=== PATIENT | female | born 1950 | race Caucasian/White ===

== ENCOUNTER 2018-12-17 07:03 | Emergency (ER) | payer MEDICARE ==
[2018-12-17 07:15] VITALS: BP 128/72
--- NOTE | 2018-12-17 07:29 | UC ---
Lower Extremity/Ankle HPI - HPI Summary HPI Summary: Patient Chief Complaint: Left lower leg pain and swelling Course (aggravating, relieving, current condition, severity): 68-year-old female reports 4 days of increasing pain in the left lower leg and swelling of that leg. She locates the pain on the lateral aspect of the calf muscle, not directly over the Achilles tendon. The pain is 7/10 and worse with walking. Her vital signs are stable. Her blood pressure slightly elevated 128/72. She is afebrile and her vital signs are otherwise within normal limits. The patient was seen here one week ago and started on Zithromax. Subsequent to that , she developed diarrhea and was diagnosed with Clostridium difficile and started on metronidazole and Cipro. Decades ago she was diagnosed with sarcoid , but has had no problem with that since that time. She does have GERD. She has no complaint of shortness of breath or chest pain consistent with a pulmonary embolus. MD note: vital signs stable. Beyond normal range vital signs reviewed. Nurses Note Reviewed: Visit History Reviewed. Medications & Allergies Reviewed. - History of Current Complaint Stated Complaint: LEG PAIN Time Seen by Provider: 12/17/18 07:11 Pain Intensity: 7 - Allergies/Home Medications Allergies/Adverse Reactions: Allergies Allergy/AdvReac Type Severity Reaction Status Date / Time No Known Allergies Allergy Verified 12/17/18 07:16 Home Medications: Home Medications raNITIdine HCl [Zantac 75] 150 mg PO BID 12/17/18 [History Confirmed 12/17/18] PMH/Surg Hx/FS Hx/Imm Hx - Additional Past Medical History Additional PMH: PMH reviewed. Family History: -Denies hypertension, heart disease, stroke, diabetes, cancer. SOCIAL HISTORY: Employment: Part-time job for many years [employer]. No recent history of sitting for a long time. Family Environment: Lives with her . Habits: Nonsmoker Previously Healthy: Yes - Surgical History Surgical History: Yes Surgery Procedure, Year, and Place: ear surgery, ovaries removed, tubal ligation , granuloma removed from face - Family History Known Family History: Positive: None, Non-Contributory - Social History Occupation: Employed Part-time Alcohol Use: None Substance Use Type: None Smoking Status (MU): Never Smoked Tobacco Review of Systems All Other Systems Reviewed And Are Negative: Yes Respiratory: Positive: Cough - residual. Negative: Shortness Of Breath Cardiovascular: Positive: Negative Gastrointestinal: Positive: Negative Genitourinary: Positive: Negative Musculoskeletal: Positive: Myalgia - Left lower leg, also swollen Is Patient Immunocompromised?: No - Comments Additional Review of Systems Comments: A 12 point review of systems was completed and was significantly positive for: left lower leg pain and swelling . The remainder of the review was negative except as stated above in the ROS or HPI. Physical Exam - Summary Physical Exam Summary: Appearance: The patient is well-appearing, is in no pain or distress, and is well-nourished. Eyes: Conjunctiva are clear. Pupils are equal and reactive to light and accommodation. Extra ocular muscle movement is intact. ENT: The hearing is grossly normal, the pharynx is normal, and the TMs are normal. There is no muffled or hoarse voice. No stridor. Neck: The neck is supple and there is no lymphadenopathy. Respiratory: The chest is nontender to palpation and without crepitus. The lungs are clear, there are normal breath sounds, and there is no respiratory distress. No wheezes, rales or rhonchi. Cardiovascular: Heart sounds reveal a regular rate and rhythm. There are no clicks, rubs or murmurs. There are no carotid bruits or thrills. Circulation is grossly intact. Abdomen: The abdomen is soft and nontender. There is no organomegaly. Bowel sounds are present and within normal limits. No point tenderness at McBurneys point. Musculoskeletal: Strength is intact. The patient moves all extremities. Patient ambulates but with increasing discomfort in the left lower leg. Measurement of the right and left lower leg shows a discrepancy of 1 inch. Approximately 5.25 inches on the right and 6.25 inches on the left. Palpation of the left lower leg over the calf shows discomfort with palpation over the lateral posterior calf on the left. Negative Homans sign. There is no significant tenderness of the Achilles just proximal to the calcaneus. Neurological: The patient is alert. Motor and sensory are examination grossly intact. Speech is normal. Psychological: The patient displays age appropriate behavior Skin: Negative for rashes. Triage Information Reviewed: Yes Vital Signs: Initial Vital Signs Temp 98.8 F 12/17/18 07:07 Pulse 83 12/17/18 07:07 Resp 20 12/17/18 07:07 BP 128/72 12/17/18 07:07 Pulse Ox 100 12/17/18 07:07 Lower Extremity Course/Dx - Course Course Of Treatment: 68-year-old female reports 4 days of increasing pain in the left lower leg and swelling of that leg. She locates the pain on the lateral aspect of the calf muscle, not directly over the Achilles tendon. The pain is 7/10 and worse with walking. Her vital signs are stable. Her blood pressure slightly elevated 128/72. She is afebrile and her vital signs are otherwise within normal limits. The patient was seen here one week ago and started on Zithromax. Subsequent to that, she developed diarrhea and was diagnosed with Clostridium difficile and started on metronidazole and Cipro. Decades ago she was diagnosed with sarcoid, but has had no problem with that since that time. She does have GERD. She has no complaint of shortness of breath or chest pain consistent with a pulmonary embolus. Patient ambulates but with increasing discomfort in the left lower leg. Measurement of the right and left lower leg shows a discrepancy of 1 inch. Approximately 5.25 inches on the right and 6.25 inches on the left. Palpation of the left lower leg over the calf shows discomfort with palpation over the lateral posterior calf on the left. Negative Homans sign. There is no significant tenderness of the Achilles just proximal to the calcaneus. I discussed with the patient that this could be a muscle discomfort. [facility], but because of the swelling and pain in the leg. I could not rule out a blood clot in the vein of that leg. The patient was encouraged to follow up in the emergency department. She voiced understanding and said she would do that. Her vital signs were stable when she left the [facility]. Medications reviewed. Hypertension, status reviewed. Slight elevation of the systolic pressure. Patient is urgent emergent. This may be related to her pain. My diagnosis is left lower extremity pain: Myalgia secondary to DVT, medication reaction, or simple muscle strain. - Differential Dx/Diagnosis Differential Diagnosis/HQI/PQRI: DVT, Sprain, Strain, Other - myalgia from Cipro Provider Diagnosis: Leg pain Discharge - Sign-Out/Discharge Documenting (check all that apply): Patient Departure All imaging exams completed and their final reports reviewed: No Studies - Discharge Plan Condition: Stable Disposition: HOME Patient Education Materials: Deep Vein Thrombosis (ED), Musculoskeletal Pain ( ED) Referrals: Shivani Orlando MD [Primary Care Provider] - Additional Instructions: WE DISCUSSED: PLEASE SEEK CARE AT THE EMERGENCY DEPARTMENT. FOLLOW UP WITH YOUR PRIMARY CARE PHYSICIAN IF CONDITION CONTINUES BEYOND 3 DAYS WITHOUT IMPROVEMENT. We are open from 7 a.m. to 10 p.m. Call us with any questions or concerns. YOUR DIAGNOSIS IS: LEFT LOWER LEG PAIN AND SWELLING; POSSIBLE REACTION TO CIPRO OR BLOOD CLOT OR MUSCLE STRAIN YOUR PRESCRIPTION RECOMMENDATION IS: No medications; Go to ED for further evaluation and treatment as needed since we don't have ultrasound today. OTHER INSTRUCTIONS: Hypertension Discharge Instructions: Your blood pressure reading today was 128/72, indicating HYPERTENSION. Follow- up with your primary care provider within 4 weeks for blood pressure check and appropriate recommendations and treatment, as needed. - Billing Disposition and Condition Condition: STABLE Disposition: Home
== END 2018-12-17 08:03 | disposition home or self-care (01) ==
LOC: UCEAST 07:03
DX: M79.662 Pain in left lower leg (principal); M79.89 Other specified soft tissue disorders; R05 Cough
CPT/HCPCS: 99212; G0463

== ENCOUNTER 2018-12-17 08:37 | Emergency (ER) | payer MEDICARE ==
--- NOTE | 2018-12-17 08:56 | ED ---
Lower Extremity - HPI Summary HPI Summary: This patient is a 68 year old F presenting from [facility] to ED with a chief complaint of L calf swelling with pain since 3 days ago. She was sent to the ED for an US to r/o blood clot. The patient rates the pain 6/10 in severity. Symptoms aggravated by nothing. Symptoms alleviated by nothing. Patient is a non -smoker and has no hx of DVT. The patient is not on any blood thinners. - History of Current Complaint Chief Complaint: EDExtremityLower Stated Complaint: POSSIBLE BLOOD CLOT IN LEG PER PT Time Seen by Provider: 12/17/18 08:44 Hx Obtained From: Patient Onset of Pain: Days - 3 days ago Onset/Duration: Still Present - 3 days ago Severity Initially: Moderate Severity Currently: Moderate Pain Intensity: 6 Pain Scale Used: 0-10 Numeric Timing: Lasting Days - 3 days ago Location: Is Discrete @ - L calf Associated Signs And Symptoms: Positive: Swelling Aggravating Factor(s): Nothing Alleviating Factor(s): Nothing Able to Bear Weight: Yes - Allergies/Home Medications Allergies/Adverse Reactions: Allergies Allergy/AdvReac Type Severity Reaction Status Date / Time No Known Allergies Allergy Verified 12/17/18 08:43 PMH/Surg Hx/FS Hx/Imm Hx Endocrine/Hematology History: Denies: Hx Diabetes, Hx Thyroid Disease Cardiovascular History: Denies: Hx Deep Vein Thrombosis, Hx Hypertension Respiratory History: Denies: Hx Asthma, Hx Chronic Obstructive Pulmonary Disease (COPD) GI History: Denies: Hx Ulcer - Cancer History Hx Chemotherapy: No Hx Radiation Therapy: No - Surgical History Surgery Procedure, Year, and Place: ear surgery, ovaries removed, tubal ligation , granuloma removed from face Infectious Disease History: No Infectious Disease History: Denies: Hx Hepatitis, Traveled Outside the [place] in Last 30 Days - Family History Known Family History: Positive: Other Family History: denies breast CA - Social History Alcohol Use: None Substance Use Type: Reports: None Hx Tobacco Use: No Smoking Status (MU): Never Smoked Tobacco Review of Systems Negative: Fever Positive: Edema - L calf swelling with pain All Other Systems Reviewed And Are Negative: Yes Physical Exam - Summary Physical Exam Summary: VITAL SIGNS: Reviewed. GENERAL: Patient is a well-developed and nourished FEMALE who is lying comfortable in the stretcher. Patient is not in any acute respiratory distress. HEAD AND FACE: No signs of trauma. No ecchymosis, hematomas or skull depressions. No sinus tenderness. EYES: PERRLA, EOMI x 2, No injected conjunctiva, no nystagmus. EARS: Hearing grossly intact. Ear canals and tympanic membranes are within normal limits. MOUTH: Oropharynx within normal limits. NECK: Supple, trachea is midline, no adenopathy, no JVD, no carotid bruit, no c- spine tenderness, neck with full ROM. CHEST: Symmetric, no tenderness at palpation LUNGS: Clear to auscultation bilaterally. No wheezing or crackles. CVS: Regular rate and rhythm, S1 and S2 present, no murmurs or gallops appreciated. ABDOMEN: Soft, non-tender. No signs of distention. No rebound no guarding, and no masses palpated. Bowel sounds are normal. EXTREMITIES: FROM in all major joints, no edema, no cyanosis or clubbing. No Vera's sign. Good pedal pulses. NEURO: Alert and oriented x 3. No acute neurological deficits. Speech is normal and follows commands. SKIN: Dry and warm Triage Information Reviewed: Yes Vital Signs On Initial Exam: Initial Vitals Temp Pulse Resp BP Pulse Ox 98.8 F 76 14 142/82 100 12/17/18 08:40 12/17/18 08:40 12/17/18 08:40 12/17/18 08:40 12/17/18 08:40 Vital Signs Reviewed: Yes Diagnostics - Vital Signs Vital Signs Temp Pulse Resp BP Pulse Ox 12/17/18 08:40 98.8 F 76 14 142/82 100 - Laboratory Result Diagrams: 12/17/18 08:57 12/17/18 08:57 Lab Statement: Any lab studies that have been ordered have been reviewed, and results considered in the medical decision making process. - Ultrasound No standard instances Ultrasound Interpretation Completed By: Radiologist Summary of Ultrasound Findings: VL LE US reveals acute appearing occlusive thrombosis of the paired peroneal veins of the LEFT calf. Negative for more proximal LEFT lower extremity DVT. Dr. Cobb has reviewed this radiology report. Re-Evaluation - Re-Evaluation First Eval Re-Evaluation Time: 11:36 Comment: Discussed results and plan for discharge. Patient understands and agrees with this plan. Lower Extremity Course/Dx - Course Assessment/Plan: Patient is a 68-year-old female who presents to the emergency department with chief complaint of having back pain. Patient went to the urgent care and they transferred her to the emergency department to rule out DVT. Test results without any significant abnormality except for CRP of 44.67. Urinalysis is contaminated. Therefore we will send urine for cultures. Lower extremity ultrasound impression: Acute-appearing occlusive thrombosis of the peroneal veins at the left calf. In the ED course the patient was placed in Eliquis and and she will be given a prescription for Eliquis. Patient was given for instructions of blood thinners the benefits and risk. The patient understands and agrees. Patient will follow up with the primary care physician on Wednesday. I discussed all the findings and test results with the patient. Patient was instructed to return to the emergency room immediately if any of the symptoms return or worsens. Plan of care was discussed with the patient and understands and agrees. All questions were answered at patient satisfaction. There were no further complaints or concerns. Lung exam before discharge: CTA B/ L. Good air exchange. No wheezing or crackles heard. CVS: S1 and S2 present. No murmurs appreciated. Patient is alert and oriented x 3. Patient is hemodynamically stable. Patient will be discharged home with follow up PCP in the next 2-3 days - Diagnoses Provider Diagnoses: DVT (deep venous thrombosis) Discharge - Sign-Out/Discharge Documenting (check all that apply): Patient Departure - discharge Patient Received Moderate/Deep Sedation with Procedure: No - Discharge Plan Condition: Stable Disposition: HOME Prescriptions: Apixaban* [Eliquis*] 10 mg PO BID #14 tab Patient Education Materials: Deep Vein Thrombosis (ED) Referrals: Shivani Orlando MD [Primary Care Provider] - 3 Days Additional Instructions: RETURN TO THE ED FOR ANY WORSENING OR NEW SYMPTOMS. - Billing Disposition and Condition Condition: STABLE Disposition: Home - Attestation Statements Document Initiated by Scribe: Yes Documenting Scribe: Siddharth Fisher Provider For Whom Amita is Documenting (Include Credential): Thai Cobb MD Scribe Attestation: Siddharth Marlow, scribed for Thai Cobb MD on 12/17/18 at 1846. Scribe Documentation Reviewed: Yes Provider Attestation: The documentation as recorded by the Siddharth parks accurately reflects the service I personally performed and the decisions made by , Thai Cobb MD Status of Scribe Document: Viewed
[2018-12-17 09:04] LABS: ABS Basophils 0.1 10^3/ul (0-0.2); ABS Eosinophils 0.1 10^3/ul (0-0.6); ABS Lymphocytes 1.8 10^3/ul (1.0-4.8); ABS Monocytes 0.9 10^3/ul (0-0.8); ABS Neutrophils 5.7 10^3/ul (1.5-7.7); ABS Nucleated RBC 0 10^3/ul; Eosinophil % 1.4 %; Hematocrit 38 % (35-47); Hemoglobin 12.8 g/dl (12.0-16.0); Lymphocyte % 20.5 %; Mean Corpuscular HGB Conc 34 g/dl (31-36); Mean Corpuscular Hemoglobin 30 pg (27-31); Mean Corpuscular Volume 89 fL (80-97); Mean Platelet Volume 7.1 fL (7.4-10.4); Nucleated Red Blood Cells % 0; Platelet Count 287 10^3/ul (150-450); Red Blood Count 4.27 10^6/ul (4.00-5.40); Red Cell Distribution Width 13 % (10.5-15); White Blood Count 8.6 10^3/ul (3.5-10.8)
[2018-12-17 09:09] LABS: INR 1.17 (0.77-1.02)
--- OUTSIDE RECORDS SUMMARY | 2018-12-17 09:11 | XMS REPORT | Continuity of Care Document ---
:1950 External Reference #:[id number] Author Name Naty Velasquez NP Address [address] [facility] [place] [address] Care Team Providers Name Role Phone Shivani Orlando M.D. Care Team Information Editorial Intern Unavailable Shivani Orlando M.D. Primary Care Physician Unavailable Payers Date Identification Numbers Payment Provider Subscriber Effective: 2017 Policy Number: [id number] [employer] Ppo Jonna Chapin Group Number: [id number] [address] PayID: [id number] [place] [address] Advance Directives Description No Information Available Problems Date Description Provider Status Onset: 01/31/2018 Gastroesophageal reflux disease Shivani Orlando M.D. 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 [employer] Tobacco Use Start: Unknown Nonsmoker ETOH Use Denies alcohol use Tobacco Use Start: Unknown Patient has never smoked Smoking Status Reviewed: 01/31/18 Patient has never smoked Exercise Exercises regularly Type/Frequency Current Allergies, Adverse Reactions, Alerts Description No Known Drug Allergies Medications Medication Date Status Form Strength Qnty SIG Indications Ordering Provider Proair HFA 11/30/ Active Aerosol 108(90Bas 8.500 take 1-2 J45.20 Naty Loomis 2018 e) gm puffs every 4 Ron, mcg/Act hours as FEED INSPECTION SUPERVISOR needed for wheezing and difficulty breathing Amoxicillin 11/30/ Active Capsules 500mg 28cap take two J01.90 Naty Loomis 2018 s capsules by Ron, mouth twice FEED INSPECTION SUPERVISOR daily until gone Omeprazole 10/28/ Active Capsules 20mg 30cap take one by Naty Loomis 2019 DR s mouth twice Ron, daily as FEED INSPECTION SUPERVISOR needed. Ranitidine HCL 01/31/ Active Tablets 150mg 180ta 1 tab by Z00.00 Naty Loomis 2017 bs mouth twice a Ron, day FEED INSPE[employer] [facility] [place] Wort / Active Capsules 150mg Unknown 0000 Multivitamin / Active Tablets 1 by mouth Unknown Adult 0000 every day Bactrim DS 01/18/ Hx Tablets 800-160mg 10tab 1 po bid N39.0 Radha 2017 - s Michael, 01/23/ Afnp-C 2018 Physical 05/21/ Hx evaluate and Prabha Therapy 2010 - treat b leg von 01/18/ pain, itb vs , 2017 sciatica M.D. Proair HFA 03/19/ Hx Aerosol 108(90Bas 1unit 2 puffs every J45.20 Naty Loomis 2010 - ) mcg/ac s 4 hours as Ron, 11/30/ needed FEED INSPECTION SUPERVISOR 2019 Klonopin 02/19/ Hx Tablets 0.5mg 120ta 1-2 po bid Prabha 2010 - bs prn von 03/19/ malik, 2010 M.D. Ibuprofen 02/19/ Hx Tablets 800mg 90tab 1 po q8 hours Prabha 2010 - s tid with food von 01/31/ , 2017 M.D. Bactrim DS 03/07/ Hx Tablets 800-160mg 14tab 1 po bid x 7d 599.0 Adeola 2009 - s Suzie, 02/19/ ENGRAVER [employer]PER[employer]ATE 2010 Physical Hx evaluate and Prabha Therapy 2008 - treat L von 03/07/ Radicular Leg , 2009 Pain M.D. Rozerem 06/03/ Hx Tablets 8mg 30tab 1 po 30 min Prabha 2008 - s before hs von 08/13/ Feroz, 2008 M.D. Ibuprofen 01/28/ Hx Tablets 600mg 90tab take 1 tablet Prabha 2008 - s every 8 hours von 02/19/ as needed Feroz, 2010 with food M.D. Vicodin 01/28/ Hx Tablets 5-500mg 60tab 1-2 po qhs Prabha 2008 - s prn von 08/13/ Feroz, 2008 M.D. Physical 02/12/ Hx Evaluate And Prabha Therapy 2008 - Treat Plantar von 08/07/ Fasciitis malik, 2007 Possible Need M.D. For Ionophoresis Effexor XR 01/20/ Hx Caps ER 75mg 30cap 1 po qd Prabha 2008 - 24HR s 08/07/ Feroz, 2007 M.D. Effexor 01/20/ Hx Tablets 37.5mg 30tab 1 po qd Prabha 2007 - s 08/07/ Feroz, 2007 M.D. Doxycycline 09/20/ Hx Capsules 100mg 20cap 1 PO bid Radha Hyclate 2007 - s Michael, 09/30/ Afnp-C 2007 Zithromax 03/15/ Hx Capsules 250mg 6caps 2 Tabs PO X1, 464.20 Radha 2007 - Then 1 Tab PO [place], 03/20/ qd X 4 More Afnp-C 2006 Days Robitussin ac 03/15/ Hx 4Oz 1-2 TSP PO 464.20 Radha 2007 - Q4H prn Cough [place], 03/22/ Afnp-C 2007 Biaxin 12/06/ Hx Tablets 500mg 20tab 1 PO bid X10 461.9 Madeleine 2007 - s Days Eli, 12/16/ Afnp-C 2007 Augmentin 11/03/ Hx Tablets 500mg 20tab 1 PO bid Michael Owen 2007 - s Elliott, 12/06/ Greta 2007 Omeprazole 05/20/ Hx Capsules 20mg 30cap 1 po qd Prabha 2006 - s pao 11/03/ Feroz, 2007 Greta Detrol LA 05/29/ Hx Capsules 4mg 30cap 1 PO qd Prabha 2005 - s 11/03/ Feroz, 2007 Greta Omeprazole / Hx Capsules 20mg 1 by mouth Unknown 0000 - DR every day 04/23/ 2018 Immunizations CPT Code Status Date Vaccine Lot # [id number] Given 09/06/2018 High-Dose, Influenza Virus Vacccine-fluzone 65 and [id number] older [id number] Given 08/07/2008 DO Not Use Split Influenza Virus Vaccine [id number] Vital Signs Date Vital Result Comment 11/30/2018 2:07pm BP Systolic 132 mmHg BP Diastolic 78 mmHg Heart Rate 76 /min Body Temperature 97.8 F Respiratory Rate 20 /min Weight 174.00 lb 10/28/2018 8:57am BP Systolic 128 mmHg BP Diastolic 78 mmHg Heart Rate 66 /min Body Temperature 98.1 F Height 62 inches 5'2" measured 01/31/18 Weight 172.00 lb BMI (Body Mass Index) 31.5 kg/m2 01/31/2018 2:34pm BP Systolic 118 mmHg BP Diastolic 76 mmHg Heart Rate 78 /min Body Temperature 97.2 F Respiratory Rate 16 /min Height 62 inches 5'2" measured 01/31/18 Weight 170.25 lb BMI (Body Mass Index) 31.1 kg/m2 01/18/2018 2:01pm BP Systolic 110 mmHg BP Diastolic 60 mmHg Heart Rate 72 /min Body Temperature 99.3 F Respiratory Rate 16 /min Height 63 inches 5'3" Weight 169.00 lb BMI (Body Mass Index) 29.9 kg/m2 05/21/2011 10:24am BP Systolic 128 mmHg BP Diastolic 72 mmHg Heart Rate 76 /min Body Temperature 98.8 F Respiratory Rate 14 /min Height 63 inches 5'3" Weight 168.00 lb BMI (Body Mass Index) 29.8 kg/m2 03/19/2011 2:20pm BP Systolic 120 mmHg BP Diastolic 62 mmHg Heart Rate 80 /min Body Temperature 99.4 F Respiratory Rate 20 /min O2 % BldC Oximetry 98 % Height 63 inches 5'3" Weight 169.00 lb BMI (Body Mass Index) 29.9 kg/m2 02/19/2011 11:29am BP Systolic 132 mmHg BP Diastolic 80 mmHg Heart Rate 72 /min Respiratory Rate 14 /min Height 63 inches 5'3" Weight 171.00 lb BMI (Body Mass Index) 30.3 kg/m2 03/07/2010 1:55pm BP Systolic 150 mmHg BP Diastolic 90 mmHg Heart Rate 84 /min Body Temperature 98.7 F Respiratory Rate 16 /min Weight 162.00 lb 08/13/2009 10:22am BP Systolic 120 mmHg BP Diastolic 80 mmHg Heart Rate 68 /min Body Temperature 98.2 F Weight 171.00 lb 01/28/2009 3:44pm BP Systolic 126 mmHg BP Diastolic 76 mmHg Heart Rate 84 /min Body Temperature 98.4 F Height 63 inches 5'3" Weight 164.00 lb BMI (Body Mass Index) 29.0 kg/m2 08/07/2008 2:35pm BP Systolic 122 mmHg BP Diastolic 68 mmHg Heart Rate 76 /min Body Temperature 98.4 F Height 63 inches 5'3" Weight 155.00 lb BMI (Body Mass Index) 27.5 kg/m2 01/21/2008 8:58am BP Systolic 114 mmHg BP Diastolic 60 mmHg Heart Rate 72 /min Height 63 inches 5'3" Weight 159.00 lb BMI (Body Mass Index) 28.2 kg/m2 09/20/2007 4:03pm BP Systolic 120 mmHg BP Diastolic 78 mmHg Body Temperature 97.8 F Height 63 inches 5'3" Weight 153.00 lb BMI (Body Mass Index) 27.1 kg/m2 06/03/2007 9:03am BP Systolic 112 mmHg BP Diastolic 60 mmHg Heart Rate 64 /min Height 63 inches 5'3" Weight 154.00 lb BMI (Body Mass Index) 27.3 kg/m2 03/15/2007 1:04pm BP Systolic 130 mmHg BP Diastolic 74 mmHg Heart Rate 80 /min Body Temperature 84.0 F Respiratory Rate 99.1 /min Height 63 inches 5'3" Weight 168.00 lb BMI (Body Mass Index) 29.8 kg/m2 12/06/2006 4:28pm BP Systolic 128 mmHg BP Diastolic 70 mmHg Body Temperature 98.9 F Height 63 inches 5'3" Weight 170.00 lb BMI (Body Mass Index) 30.1 kg/m2 11/03/2006 12:15pm BP Systolic 112 mmHg BP Diastolic 70 mmHg Heart Rate 68 /min Body Temperature 97.9 F 05/20/2006 5:36pm BP Systolic 112 mmHg BP Diastolic 60 mmHg Body Temperature 98.9 F Weight 165.00 lb 05/29/2005 2:14pm BP Systolic 110 mmHg BP Diastolic 64 mmHg Heart Rate 68 /min Weight 164.00 lb 05/08/2005 2:49pm BP Systolic 130 mmHg BP Diastolic 70 mmHg Heart Rate 62 /min Weight 164.00 lb Results Test Date Facility Test Result H/L Range Note CBC Electronic a 01/18/2018 [facility] ([facility]) WBC 5.9 x10^3/UL 4.0- 10.0 RBC 4.30 x10^6/UL 3.93-6.00 HGB 13.1 g/dL 12.0-17.0 HCT 38 % 35-50 MCV 89.1 fL 80.0-95.0 MCH 30.5 pg 25.6-32.2 MCHC 34.2 g/dL 32.2-36.0 RDW-CV 12.1 % 11.6-14.4 PLT 203 x10^3/UL 163-400 MPV 9.2 fL Low 9.4-12.4 Prema# 2.73 x10^3/UL 1.56-6.13 Lymph# 2.32 x10^3/UL 1.18-3.74 Gaston# 0.68 x10^3/UL 0.24-0.82 Eos # 0.2 x10^3/UL 0.0-0.5 Baso # 0.03 x10^3/UL 0.01-0.08 Prema% 45.9 % 34.0-70.0 Lymph % 39.1 % 20.0-52.0 Gaston% 11.4 % 5.0-12.0 Eos% 2.9 % 0.7-7.0 Baso% 0.5 % 0.1-1.2 Lipid Profile 01/18/2018 [facility] ([facility]) Cholesterol 214 mg/dL High 120-200 Triglycerides 76 mg/dL 30-200 HDL Cholesterol 52 mg/dL 30-85 LDL (Calculated) 147 CALC High 0-129 VLDL Cholesterol 15 mg/dL 0-50 HDL Risk Factor 4.1 CALC 0.0-4.4 Ua - Micro (Fma) 01/18/2018 [facility] Medicine WBC (a,[facility]) 5-10 # (607)- - RBC 2-3 # Mucus - /Lpf Epith occ /Lpf # Bacteria trace /Hpf # Z#Comments chromogenic int. # Comprehensive Metabolic 01/18/2018 [facility] ([facility]) Sodium 143 mEq/L 134-149 Prof Potassium 3.8 mEq/L 3.6-5.5 Chloride 106 mEq/L 94-112 Carbon Dioxide 29 mEq/L 21-32 Glucose 95 mg/dL 70-105 BUN 18 mg/dL 6-26 Creatinine 0.8 mg/dL 0.6-1.4 BUN/Creat Ratio 22.5 CALC 8.0-36.0 Calcium 9.5 mg/dL 8.6-10.2 Total Protein 6.8 g/dL 6.4-8.3 Albumin 4.5 g/dL 3.8-5.5 Globulin 2.3 g/dL 2.0-4.8 A/G Ratio 2.0 CALC 0.6-2.3 Alk. Phosphatase 41 U/L 30-110 Alt (SGPT) 22 U/L 7-35 Ast (Sgot) 16 U/L 5-34 Total Bilirubin 0.3 mg/dL 0.2-1.3 GFR Non- >60 ml/min/1.73m^ >=60 GFR >60 ml/min/1.73m^ >=60 Laboratory test 01/18/[address] [facility] Urine Culture And SEE RESULT 1 finding Sensitivities BELOW Laboratory test 04/19/[address] [facility] Surgical Pathology 2 finding ---- <SEE NOTE> CBC Electronic 05/21/2011 [facility] WBC 4.9 3.6-9. (a) (607)- - 6 RBC 4.51 3.90-5.70 Hemoglobin (Fma/CMC/CTX) 13.7 g/dL 12.1 - 17.2 Hematocrit (Fma/CMC/CTX) 40.3 % 36.1 - 50.3 Platelets 359 10^3/ul 150-400 Lymph% 34.8 20.5-51.1 Mixed% 6.7 Neutrophils % 58.5 Mean Corpuscular Vol 89 82.2-97.4 Mean Corpuscular Hemoglobin 30.5 27.6-33.3 Mean Corpuscular Hemo Concen 34.1 32.0-36.0 RDW 12.2 11.6-13.7 Mean Platelet Volume 7.9 6.5-11.0 Ua - Micro (Fma) 05/21/2011 [facility] Appearance CLEAR (607)- - Color YELLOW Glucose, Urine (Fma/CMC/CTX) NEG Bilirubin NEG Ketones NEG SP Grav 1.010 Blood TRACE-LYSED # PH 5.5 Protein NEG Urobil 0.2 Nitrite NEG Leukocytes (Fma/CMC/[facility]) TRACE # Hyaline - /Lpf Granular - /Lpf WBC (Fma,[facility]) 1-2 RBC 0-2 Mucus (Fma/CBC/[facility]) - /Lpf Epith OCC /Lpf Bacteria - /Hpf Amorphous (Fma/CMC/[facility]) - /Lpf Crystals, Fluid (Fma/CMC/CTX) - Z#Comments - Comprehensive Metabolic 05/21/2011 [facility] ([facility]) Albumin 4.5 g/dL 3.8-5.5 Prof Alk. Phos. 35 U/L 30-110 Alt (SGPT) 22 U/L 7-35 Ast (Sgot) 16 U/L 5-34 BUN 18 mg/dL 6-26 Calcium 9.1 mg/dL 8.6-10.2 Chloride 104 mEq/L 94-112 Creatinine 0.7 mg/dL 0.6-1.4 Carbon Dioxide 24 mEq/L 21-32 Glucose 94 mg/dL 70-105 Sodium 142 mEq/L 134-149 Total Bilirubin 0.4 mg/dL 0.2-1.3 Total Protein 6.8 g/dL 6.3-8.1 Potassium 4.0 mEq/L 3.6-5.5 Globulin 2.3 g/dL 2.0-4.8 A/G Ratio 1.9 Calc 0.6-2.2 BUN/Creat Ratio 24.8 Calc 8.0-36.0 Laboratory test 05/21/2011 [facility] ([facility]) TSH 1.46 mIU/L 0.50- 6.00 finding Lipid Profile 05/21/2011 [facility] ([facility]) Cholesterol 215 mg/dL High 120-200 HDL 52 mg/dL 30-85 Triglycerides 99 mg/dL 30-200 HDL Risk Factor 4.2 CALC High 0.0-4.0 LDL (Calculated) 144 CALC High 0-129 VLDL (Calculated) 20 mg/dL 0-50 CBC With Electronic Diff 08/08/[address] [facility] White Blood Count 4.1 CUMM Low 4.8-10.8 3 Red Cell Count 4.29 CUMM 4.2-5.4 Hemoglobin 13.6 g/dL 12.0-16.0 Hematocrit 39 % 35-47 Mean Corpuscular Volume 91 um3 79-97 Mean Corpuscular Hemoglob 32 pg High 27-31 Mean Corpuscular HGB Cone 35 g/dL 32-36 Redcell Distribution WDTH 12 % 10.5-15 Platelet Count 227 CUMM 150-450 Mean Platelet Volume 7.0 um3 Low 7.4-10.4 Gran % 42.5 % 38-83 Lymph % 42.7 % 25-47 Mononuclear % 8.5 % 1-9 Eosinophil % 5.4 % 0-6 Basophil % 0.9 % 0-2 Abs Lymphs 1.7 1.0-4.8 Abs Mononuclear 0.3 0-0.8 Absolute Neutrophil Count 1.7 1.5-7.7 Abs Eosinophils 0.2 0-0.6 Abs Basophils 0 0-0.2 Type And Screen 08/08/[address] [facility] Patient Blood Type A POSITIVE Antibody Screen NEGATIVE Specimen Discard Date 08/22/10 4 Type And Screen 05/29/[address] [facility] Patient Blood Type A POSITIVE 5 Antibody Screen NEGATIVE Specimen Discard Date 06/13/10 6 Laboratory test finding 05/29/[address] [facility] CA 125 (Ovarian Cancer 11.0 U/ML 2.0-35.0 7 Ag) CBC With Electronic Diff 05/29/[address] [facility] White Blood Count 5.4 CUMM 4.8- 10.8 Red Cell Count 4.04 CUMM Low 4.2-5.4 Hemoglobin 12.8 g/dL 12.0-16.0 Hematocrit 37 % 35-47 Mean Corpuscular Volume 91 um3 79-97 Mean Corpuscular Hemoglob 32 pg High 27-31 Mean Corpuscular HGB Cone 35 g/dL 32-36 Redcell Distribution WDTH 13 % 10.5-15 Platelet Count 212 CUMM 150-450 Mean Platelet Volume 7.3 um3 Low 7.4-10.4 Gran % 44.2 % 38-83 Lymph % 43.6 % 25-47 Mononuclear % 9.3 % High 1-9 Eosinophil % 2.4 % 0-6 Basophil % 0.5 % 0-2 Abs Lymphs 2.4 1.0-4.8 Abs Mononuclear 0.5 0-0.8 Absolute Neutrophil Count 2.4 1.5-7.7 Abs Eosinophils 0.1 0-0.6 Abs Basophils 0 0-0.2 Ua - Micro (Fma) 03/07/2010 [facility] Appearance CLEAR (607)- - Color YELLOW Glucose NEG Bilirubin NEG Ketones NEG SP Grav <=1.005 Blood MODERATE # PH 6.0 Protein NEG Urobil 0.2 E.U./dL Nitrite NEG Leukocytes (Fma/CMC/[facility]) NEG Hyaline - /Lpf Granular - /Lpf WBC (Fma,[facility]) 3-5 # RBC 1-3 # Mucus - /Lpf Epith MODERATE /Lpf # Bacteria 1+ /Hpf # Amorphous - /Lpf Crystals, Fluid (Fma/CMC/CTX) - Z#Comments - Laboratory test 08/13/2009 [facility] Thin Prep SEE NOTE 8 finding 28 [facility] W/HPV(Lsil/ROSENDO/Asc) [place] [id number] [phone] Ua - Micro 08/13/2009 [facility] Appearance clear (a) (607)- - Color yellow Glucose neg Bilirubin neg Ketones neg SP Grav <1.005 Blood trace # PH 6.0 Protein neg Urobil 0.2 Nitrite neg Leukocytes (Fma/CMC/[facility]) small # Hyaline - /Lpf Granular - /Lpf WBC (Fma,[facility]) 5-7 # RBC 2-3 # Mucus - /Lpf # Epith occass /Lpf # Bacteria trace /Hpf # Amorphous - /Lpf Crystals, Fluid (Fma/CMC/CTX) - Z#Comments - Complete Blood Count 01/28/2009 [facility] ([facility]) WBC 5.9 x10^3/uL 3.6-9.6 Gran# 3.0 x10^3/uL 1.5-7.2 Gran% 51.4 % 42.2-75.2 HCT 41 % 36-50 HGB 13.8 g/dL 12.1-17.2 Lymph# 2.4 x10^3/uL 0.7-4.9 Lymph% 40.0 % 20.5-51.1 MCH 30.1 pg 27.6-33.3 MCV 88.5 fL 82.2-97.4 MCHC 34.0 g/dL 33.0-35.5 Mo# 0.5 x10^3/uL 0.1-0.9 Mo% 8.6 % 1.7-9.3 MPV 8.2 fL 7.4-10.4 PLT 249 x10^3/uL 150-400 RBC 4.58 x10^6/uL 3.90-5.70 RDW 12.3 % 11.6-13.7 Basic Metabolic Profile 01/28/2009 [facility] ([facility]) BUN 19 mg/dL 6- 26 Calcium 9.2 mg/dL 8.6-10.2 Chloride 103 mEq/L 94-112 Creatinine 0.8 mg/dL 0.6-1.4 Carbon Dioxide 27 mEq/L 21-32 Glucose 89 mg/dL 70-105 Sodium 142 mEq/L 134-149 Potassium 3.7 mEq/L 3.6-5.5 BUN/Creat Ratio 22.5 Calc 8.0-36.0 Laboratory test 01/28/2009 [facility] Rheumatoid SEE BELOW 9, [address] Factor (RF) [place] [address] [phone] Laboratory test 01/28/2009 [facility] Sed Rate 3mm finding (607)- - (Fma/CMC/[facility] ) Ua - Micro (Fma) 08/07/2008 [facility] Appearance CLEAR (607)- - Color YELLOW Glucose NEG Bilirubin NEG Ketones NEG SP Grav 1.015 Blood NEG PH 7.0 Protein NEG Urobil 0.2 Nitrite NEG Leukocytes (Fma/CMC/[facility]) SMALL # Hyaline - /Lpf Granular - /Lpf WBC (Fma,[facility]) 3-5 RBC 0-1 Mucus - /Lpf Epith MODERATE /Lpf Bacteria TRACE /Hpf Amorphous SMALL AMT /Lpf Crystals, Fluid (Fma/CMC/CTX) - Z#Comments NOT CLEAN CATCH Laboratory test 08/07/2008 [facility] Thin Prep SEE NOTE 11 finding [address] W/HPV(Lsil/ROSENDO/Asc) [place] [address] [phone] Laboratory test 09/20/2007 [facility] Throat - Beta Strep Fma NEGATIVE finding (607)- - Quickstrep NEGATIVE Negative Laboratory test 06/03/2007 [facility] Thin Prep SEE NOTE [address] W/HPV(Lsil/ROSENDO/Asc) [place] [address] [phone] Lipid Profile 06/03/2007 [facility] ([facility]) Cholesterol 194 120- 13 mg/dL 200 HDL 32 mg/dL 30-85 Triglycerides 77 mg/dL 30-200 HDL Risk Factor 6.1 CALC 4.2-7.0 LDL (Calculated) 147 CALC High 0-129 VLDL (Calculated) 15 mg/dL 0-50 Comprehensive Metabolic 06/03/2007 [facility] ([facility]) Albumin 4.1 g/dL 3.8-5.5 Prof Alk. Phos. 48 U/L 30-110 Alt (SGPT) 19 U/L 7-35 Ast (Sgot) 19 U/L 5-34 BUN 16 mg/dL 6-26 Calcium 9.4 mg/dL 8.6-10.2 Chloride 101 mEq/L 94-112 Creatinine 1.0 mg/dL 0.6-1.4 Carbon Dioxide 31 mEq/L 21-32 Glucose 96 mg/dL 70-105 Sodium 142 mEq/L 134-149 Total Bilirubin 0.5 mg/dL 0.2-1.3 Total Protein 7.2 g/dL 6.3-8.1 Potassium 3.8 mEq/L 3.6-5.5 Globulin 3.2 g/dL 2.0-4.8 A/G Ratio 1.3 Calc 0.6-2.2 BUN/Creat Ratio 16.3 Calc 8.0-36.0 Laboratory test 06/03/2007 [facility] ([facility]) TSH 2.49 mIU/L 0.50- 6.00 finding Complete Blood Count 06/03/2007 [facility] ([facility]) WBC 4.8 x10\\S\\3/uL 3.6-9.6 Gran# 2.7 x10\\S\\3/uL 1.5-7.2 Gran% 55.4 % 42.2-75.2 HCT 41 % 36-50 HGB 13.9 g/dL 12.1-17.2 Lymph# 1.8 x10\\S\\3/uL 0.7-4.9 Lymph% 37.3 % 20.5-51.1 MCH 32.2 pg 27.6-33.3 MCV 94.0 fL 82.2-97.4 MCHC 34.2 g/dL 33.0-35.5 Mo# 0.4 x10\\S\\3/uL 0.1-0.9 Mo% 7.3 % 1.7-9.3 MPV 7.5 fL 7.4-10.4 PLT 259 x10\\S\\3/uL 150-400 RBC 4.33 x10\\S\\6/uL 3.90-5.70 RDW 12.5 % 11.6-13.7 Ua - Non Micro (a) 06/03/2007 [facility] Appearance CLEAR (607)- - Color LT YELLOW Glucose NEG Bilirubin NEG Ketones NEG SP Grav <=1.005 Blood NEG LMP 05/27/07 PH 7.5 Protein NEG Urobil 0.2 Nitrite NEG Leukocytes (a/[facility]) NEG Laboratory test 05/20/2006 [facility] B12 (a/[facility]) 584 pg/mL 230-1050 finding (607)- - Folic Acid (a/[facility]) 12.08 NG/ML 3.00-16.00 TSH (a/[facility]) 2.17 uIU/ml 0.5-6.0 Ua - Micro ([facility] New) 05/29/2005 [facility] Appearance CLOUDY (607)- - Color LT YELLOW Glucose NEG Bilirubin NEG Ketones NEG SP Grav 1.015 Blood TRACE-INTACT PH 5.0 Protein NEG Urobil 0.2 Nitrite NEG Leukocytes MOD Hyaline - /Lpf Granular - /Lpf WBC'S 5-10 WITH CLUMPS RBC'S 0-1 Mucus - /Lpf Epith MOD Bacteria 2+ Amorphous - /Lpf Crystals - /Lpf Z#Comments NOT CLEAN CATCH Laboratory test 05/29/2005 [facility] Pap,TP W/HPV SEE IMAGE finding [address] [place], [place] [id number] [phone] 1 SEE RESULT BELOW Name: CHAPIN,JONAN Marlow : [address]: Radha Rodriguez FEED INSPECTION SUPERVISOR Acct: [id number] Unit: [id number] AGE: 67 Location: [facility] Re01/18/18 SEX: F Status: REG REF SPEC: [id number] ANTONI: 01/18/18-1451 [facility] DR: Radha Rodriguez FEED INSPECTION SUPERVISOR REQ: [id number] RECD: 01/18/18 STATUS: COMP _ SOURCE: URINE [facility]: ORDERED: Urine Culture COMMENTS: [id number] salgado urine top Urine Source: Random Procedure Result Reported Site Urine Culture Final 01/20/18- 0953 ML No growth of clinically significant organisms * ML - Main Lab . END OF REPORT DEPARTMENT OF PATHOLOGY, [address] [place] [address] Blayne Pittman M.D. Director KIESHA # [id number] 2 --- RUN DATE: 04/20/12 [facility] LIVE PAGE 1 RUN TIME: 1331 Specimen Inquiry RUN USER: INTERFACE -- Name: JONNA CHAPIN I Status: REG REF Re04/19/12 Age/Sex: 61/F Unit#: [id number] Location: [address] [place] [address].O.B. : 52 -- Specimen: [id number] SOUT Spec Date:04/19/12- Subm Dr: Logan pappas MD Spec Type: SURGICAL P Received:04/19/12-8695 Copies to: Mireya florez MD SPECIMEN RANDOM COLON BIOPSIES HISTORY POST-OP DIAGNOSIS: To cecum - random biopsy to rule out microscopic CLINICAL INFORMATION: Family history of colon cancer; diarrhea GROSS DESCRIPTION The specimen is received in formalin labelled Jonna Chavezves, Random Colon Biopsies, and consists of three fragments of brown tissue each measuring 0.5 x 0.2 x 0.2 cm. Submitted entirely, one cassette. DIAGNOSIS Random colon, biopsy: Fragments of large bowel mucosa with evidence of lymphocytic colitis. Signed Electronically by: MAICO POE 04/20/12 1331 -- -- DEPARTMENT OF PATHOLOGY, [address] [place] [address] [facility] Permit #[id number] Blayne Pittman M.D. Director Maico Poe M.D. Community Assistant Dir crow -- 3 OR DATE 08/15 4 PREADMISSION TESTING SAMPLES FOR BLOOD BANK WILL BE HELD FOR 14 DAYS FROM THE DATE OF COLLECTION *IF* THE FOLLOWING CRITERIA ARE MET: 1) THE PATIENT HAS *NOT* BEEN IN THE LAST 3 MONTHS. 2) THE PATIENT HAS *NOT* BEEN TRANSFUSED IN THE LAST 3 MONTHS. PREADMISSION TESTING SAMPLES WILL *NOT* BE HELD FOR 14 DAYS FROM PATIENTS WHO IN THE LAST 3 MONTHS: 1) HAVE BEEN 2) HAVE BEEN TRANSFUSED THESE PATIENTS *MUST* BE COLLECTED WITHIN 3 DAYS OF THE SURGERY DATE. 5 SURGERY DATE IS 06/05/10914 6 PREADMISSION TESTING SAMPLES FOR BLOOD BANK WILL BE HELD FOR 14 DAYS FROM THE DATE OF COLLECTION *IF* THE FOLLOWING CRITERIA ARE MET: 1) THE PATIENT HAS *NOT* BEEN IN THE LAST 3 MONTHS. 2) THE PATIENT HAS *NOT* BEEN TRANSFUSED IN THE LAST 3 MONTHS. PREADMISSION TESTING SAMPLES WILL *NOT* BE HELD FOR 14 DAYS FROM PATIENTS WHO IN THE LAST 3 MONTHS: 1) HAVE BEEN 2) HAVE BEEN TRANSFUSED THESE PATIENTS *MUST* BE COLLECTED WITHIN 3 DAYS OF THE SURGERY DATE. 7 The CA 125 assay is not recommended as a cancer screening test, but rather as an aid in monitoring response to therapy for patients with epithelial ovarian cancer. Serial testing for patients CA 125 assay values should be used in conjunction with other methods used for screening ovarian cancer. . 8 [employer] DEPARTMENT OF PATHOLOGY or Extension [address] [employer] WORK[employer] CYTOLOGY REPORT PATIENT: JONNA CHAPIN I : 1950 AGE: 58 Y SEX: F ACCT: [id number] PROCEDURE DATE: 08/13/2009 DATE RECEIVED: 08/14/2009 REQUESTING PHYSICIAN: PRABHA HILL MD LOCATION: [facility] [place] Case No. [id number] PATIENT DATA: [id number] SPECIMEN SUBMITTED: * * (HPVII) THIN PREP W/HPV (LSIL/ASC/ROSENDO) * * ENDOCERVICAL RELEVANT HISTORY: Menarche: Y Menopause: Y : 2 Para: 2 Prev.normal: 07/2008 SPECIMEN ADEQUACY SATISFACTORY FOR EVALUATION. THE PRESENCE OF TRANSFORMATION ZONE COMPONENT CANNOT BE DETERMINED DUE TO ATROPHIC CHANGES. GENERAL CATEGORIZATION NEGATIVE FOR INTRAEPITHELIAL LESIONS OR MALIGNANCY ADDITIONAL COPIES SENT TO: Screened/Rescreened by: Electronically Signed by: SALUD WALLACE(ASCP) Signed Date and Time: 08/15/2009 12:37 Thin Prep Pap tests are examined with an FDA-approved location-guidance system (78086). Performed @ [facility] [address] [place] [address] "" 9 1SST 10 RA Latex Turbid. 5.4 IU/mL 0.0-13.9 RN RN-[facility] [address] [phone] [facility] DEPARTMENT OF PATHOLOGY or Extension [id number] [employer] CYTOLOGY REPORT PATIENT: JONNA CHAPIN I : 1950 AGE: 57 Y SEX: F ACCT: [id number] PROCEDURE DATE: 08/07/2008 DATE RECEIVED: 08/08/2008 REQUESTING PHYSICIAN: PRABHA HILL MD LOCATION: [facility] [place] Case No. [id number] PATIENT DATA: [id number] PREVIOUS PAP: 06/03/07 ENDOMETRIAL CELLS SPECIMEN SUBMITTED: * * (HPVII) THIN PREP W/HPV (LSIL/ASC/ROSENDO) * * ENDOCERVICAL RELEVANT HISTORY: Menopause: Y : 2 Para: 2 SPECIMEN ADEQUACY SATISFACTORY FOR EVALUATION, ENDOCERVICAL TRANSFORMATION ZONE COMPONENT PRESENT GENERAL CATEGORIZATION NEGATIVE FOR INTRAEPITHELIAL LESIONS OR MALIGNANCY ADDITIONAL COPIES SENT TO: Screened/Rescreened by: Electronically Signed by: SALUD WALLACE(ASCP) Signed Date and Time: 08/09/2008 15:03 Thin Prep Pap tests are examined with an FDA-approved location-guidance system (50343). Performed @ [facility], [address] [place] [address] 12 [facility] DEPARTMENT OF PATHOLOGY or Extension [address] WORK[employer] CYTOLOGY REPORT PATIENT: JONNA CHAPIN I : 1950 AGE: 56 Y SEX: F ACCT: [id number] PROCEDURE DATE: 06/03/2007 DATE RECEIVED: 06/06/2007 REQUESTING PHYSICIAN: PRABHA HILL MD LOCATION: [facility] Case No. [id number] PATIENT DATA: [id number] SPECIMEN SUBMITTED: * * (HPVII) THIN PREP W/HPV (LSIL/ASC/ROSENDO) * * ENDOCERVICAL RELEVANT HISTORY: LMP: 05/27/2007 : 2 Para: 2 Prev.normal: 2004 SPECIMEN ADEQUACY SATISFACTORY FOR EVALUATION, ENDOCERVICAL TRANSFORMATION ZONE COMPONENT PRESENT GENERAL CATEGORIZATION NEGATIVE FOR INTRAEPITHELIAL LESIONS OR MALIGNANCY INTERPRETATION/ RESULT ENDOMETRIAL CELLS IN A WOMAN GREATER THAN OR EQUAL TO 40 YEARS OF AGE. RECOMMENDATIONS Benign appearing endometrial cells on Pap tests are usually a normal finding in women with regular menstrual cycles, especially if the Pap test was collected during the first half of the menstrual cycle. There is data showing that endometrial cells on Pap tests may be associated with endometrial/uterine abnormalities in post-menopausal women or in pre-menopausal women with abnormal bleeding. There is limited data on the significance of benign endometrial cells in post-menopausal women on hormonal replacement therapy. Clinical correlation is recommended. Note: The Pap test is not an accurate test for the screening of endometrial lesions and should not be used as a follow up in patients with clinical suspicion of endometrial pathology. Endometrial cells correlate with the menstrual history provided. ADDITIONAL COPIES SENT TO: Screened/Rescreened by: Electronically Signed by: SALUD SALAS(ASCP) Signed Date 06/09/2007 10:32 Thin Prep Pap tests are examined with an FDA-approved location-guidance system (34386). Performed @ [facility] [address] [place] [address] 13 FASTING Procedures Date Code Description Status 01/18/2018 48392 Electrocardiogram Complete Completed 10/11/2017 [id number] Mammogram Completed 10/11/2014 [id number] Bone Mineral Density Test Completed 04/19/2012 [id number] Colonoscopy Completed 08/17/2011 [id number] Mammogram Completed 05/21/2011 67474 Electrocardiogram Complete Completed 03/19/2011 27668 Pulse Oximetry Completed 08/05/2010 [id number] Mammogram Completed 06/26/2009 [id number] Mammogram Completed 06/19/2008 [id number] Mammogram Completed 06/17/2007 [id number] Mammogram Completed 02/02/2007 [id number] Colonoscopy Completed 05/25/2006 [id number] Mammogram Completed Encounters Type Date Location Provider Dx Diagnosis Office Visit 10/28/2018 [facility] Office Naty Loomis K21.9 Gastro-esophageal 9:00a ALISE Velasquez reflux disease without esophagitis Z12.11 Encounter for screening for malignant neoplasm of colon Office Visit 01/18/2018 2:15p [facility] Office Radha N39.0 Urinary tract [place], Afnp-C infection, site not specified R07.9 Chest pain, unspecified Z82.49 Family hx of ischem heart dis and oth dis of the circ sys Z85.038 Personal history of malignant neoplasm of large intestine Office Visit 05/21/2011 10:20a [facility] Office Prabha cedeno V70.0 Examination Greta Redman General Medical Routine AT Health Care Facility V72.31 Routine Early Childhood Education Coordinator Examination 272.4 Hyperlipidemia Other Unspec 135 Sarcoidosis 599.72 Microscopic Hematuria Office Visit 03/19/2011 2:15p Main Office Madeleine Benitez, 493.00 Asthma Extrinsic Afnp-C Unspecified Office Visit 02/19/2011 11:20a [facility] Office Prabha cedeno 300.09 Anxiety States Greta Redman Other Office Visit 03/07/2010 1:45p Main Office Adeola Larsen, 599.0 UTI Urinary Tract ENGRAVER COPPERPLATE Infection Site Not Spec 626.4 Irregular Menstrual Cycle Office Visit 08/13/2009 10:00a [facility] Office Prabha cedeno V70.0 Examination Greta Redman General Medical Routine AT Health Care Facility 729.5 Pain In Limb 719.47 Pain Joint Ankle & Foot V72.31 Routine Early Childhood Education Coordinator Examination 791.7 Cells & Casts In Urine Other Office Visit 01/28/2009 3:20p Main Office Prabha cedeno 719.46 Pain Joint Greta Redman Lower Leg 719.45 Pain Joint Pelvic Region & Thigh Office 08/07/2008 [facility] Prabha cedeno v04.81 Need For Prophylactic Visit 2:10p Office Greta Redman Vaccination & Inoculation/Influenza 791.7 Cells & Casts In Urine Other V04.81 Need For Prophylactic Vaccination & Inoculation/Influenza V70.0 Examination General Medical Routine AT Health Care Facility V72.31 Routine Early Childhood Education Coordinator Examination 719.47 Pain Joint Ankle & Foot Office Visit 01/21/2008 9:00a Main Office Prabha cedeno 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 Plantar Fascia 627.2 Menopausal Or Female Climacteric State, Symptomatic Office Visit 09/20/2007 4:15p [facility] Office Radha 466.0 Bronchitis Acute [place], Afnp-C 462 Pharyngitis Acute Office Visit 06/03/2007 9:20a [facility] Office Prabha cedeno V70.0 Examination Greta Redman General Medical Routine AT Health Care Facility V72.31 Routine Early Childhood Education Coordinator Examination V17.3 History Family Ischemic Heart Disease V18.0 History Family Diabetes Mellitus Office Visit 03/15/2007 1:15p [facility] Office Radha 465.9 URI Upper [place], Afnp-C Respiratory Infections Acute Unspec Sites 464.20 Laryngotracheitis Acute W/O Obstruction 528.9 Oral Soft Tissue Diseases Other & Unspec Office Visit 12/06/2006 4:30p Main Office Madeleine Benitez, 461.9 Sinusitis Acute Afnp-C Unspec Office Visit 11/03/2006 12:10p Main Office Michael Gallagher, 461.9 Sinusitis Acute M.D. Unspec 382.9 Otitis Media Unspec Office Visit 05/20/2006 5:10p [facility] Office Prabha cedeno 782.0 Skin Sensation Greta Redman Disturbance 787.1 Heartburn Office Visit 05/29/2005 2:20p [facility] Prabha Hill, 599.7 Hematuria M.D. V72.31 Routine Early Childhood Education Coordinator Examination 787.91 Diarrhea Office Visit 05/08/2005 2:20p [facility] Prabha Hill, 135 Sarcoidosis MKashDKash 786.2 Cough 733.20 Cyst Bone Localized Unspec Plan of Treatment Future Appointment(s):02/01/2019 1:00 pm - Shivani Orlando M.D. at [facility]11/30/2018 - Naty Velasquez, NPJ01.90 Acute sinusitis, unspecifiedNew Medication:Amoxicillin 500 mg - take two capsules by mouth twice daily until goneComments:Call or return if you develop new fever, trouble breathing, sudden worsening, or pain in the ears, face, or chest.It is normal to cough for 2-3 weeks. You should be re-evaluated at the office if your cough persists longer or if you have a cough with fever, wheezing, or worsening pain.AllComments:1. Patient has been queried about patient's goals/preferences and functional/ lifestyle goals at relevant visits. If relevant, describe: Has been discussed, noted above2. Treatment goals as explainedto the patient: see above3. Are there barriers to meeting treatment goals? Yes If Yes, please describe: Barriers include possible insurance limits, disease process, and difficulty with lifestyle changes4. Self-Management goals as described to the patient: Yes , see above As always, we strongly encourage a healthy diet and making physical activity a part of your every day life. If you have questions about how or where to start, please contact the office.
--- OUTSIDE RECORDS SUMMARY | 2018-12-17 09:11 | XMS REPORT | Continuity of Care Document ---
:1950 External Reference #:[id number] Author Name Jennifer Brito Address [address] [place] [address] Care Team Providers Name Role Phone Shivani Orlando M.D. Care Team Information Pocketed Spring Machine Operator Unavailable Shivani Orlando M.D. Primary Care Physician Unavailable Payers Date Identification Numbers Payment Provider Subscriber Effective: 2017 Policy Number: [id number] [employer] Medicare Ppo Jonna Chapin Group Number: [id number] [id number] PayID: [id number] [place] [address] Advance Directives Description No Information Available Problems Date Description Provider Status Onset: 01/31/2018 Gastroesophageal reflux disease Shivani Orlando M.D. 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 e) gm puffs every 4 Ron, mcg/Act hours as FOREIGN DIPLOMAT needed for wheezing and difficulty breathing Omeprazole 10/28 Active Capsules 20mg 30cap take one by Naty Loomis DR s mouth twice Ron, daily as FOREIGN DIPLOMAT needed. Ranitidine HCL 01/31 Active Tablets 150mg 180ta 1 tab by Z00.00 Naty CKash bs mouth twice a Ron, day FOREIGN DIPLOMAT [facility] Active Capsules 150mg Unknown /0000 Multivitamin Active Tablets 1 by mouth Unknown Adult /0000 every day Metronidazole Active Tablets 500mg Tidx10 Days Unknown Ciprofloxacin Active Tablets 500mg 1 by mouth Unknown HCL /0000 twice a day Amoxicillin 11/30 Hx Capsules 500mg 28cap take two J01.90 Naty C. s capsules by Ron, - mouth twice FOREIGN DIPLOMAT 12/13 daily until gone Bactrim DS 01/18 Hx Tablets 800-160mg 10tab 1 po bid N39.0 tank Rodriguez, - Afnp-C 01/23 Physical 05/21 Hx evaluate and Prabha Therapy /2010 treat b leg von - pain, itb vs Feroz, 01/18 sciatica M.D. Proair HFA 03/19 Hx Aerosol 108(90Bas 1unit 2 puffs every J45.20 Naty C. e) mcg/ac s 4 hours as Ron, - needed FOREIGN DIPLOMAT 11/30 Klonopin 02/19 Hx Tablets 0.5mg 120ta 1-2 po bid bs prn pao Redman, 03/19 M.D. Ibuprofen 02/19 Hx Tablets 800mg 90tab 1 po q8 hours s tid with food pao Redman, 01/31 M.D. Bactrim DS 03/07 Hx Tablets 800-160mg 14tab 1 po bid x 7d 599.0 tank Larsen, - DIGITAL MEDIA MANAGER 02/19 Physical 08/13 Hx evaluate and Prabha Therapy /2008 treat L von - Radicular Leg Feroz, 03/07 Pain M.D. Rozerem 06/03 Hx Tablets 8mg 30tab 1 po 30 min s before hs pao Redman, 08/13 M.D. Ibuprofen 01/28 Hx Tablets 600mg 90tab take 1 tablet s every 8 hours von - as needed Feroz, 02/19 with food M.D. Vicodin 01/28 Hx Tablets 5-500mg 60tab 1-2 po qhs s prn pao Redman, 08/13 M.D. Physical 02/12 Hx Evaluate And Prabha Treat Plantar von - Fasciitis Feroz, 08/07 Possible Need M.D. For Ionophoresis Effexor XR 01/20 Hx Caps ER 75mg 30cap 1 po qd 24HR s pao Redman, 08/07 M.D. Effexor 01/20 Hx Tablets 37.5mg 30tab 1 po qd s pao Redman, 08/07 M.D. Doxycycline 09/20 Hx Capsules 100mg 20cap 1 PO bid Radha Hyclate tank Rodriguez, - Afnp-C 09/30 Zithromax 03/15 Hx Capsules 250mg 6caps 2 Tabs PO X1, 464.20 Then 1 Tab PO Michael, - qd X 4 More Afnp-C 03/20 Days Robitussin ac 03/15 Hx 4Oz 1-2 TSP PO 464.20 Q4H prn Cough Michael, - Afnp-C 03/22 Biaxin 12/06 Hx Tablets 500mg 20tab 1 PO bid X10 461.9 Madeleine s Shady Eli, - Afnp-C 12/16 Augmentin 11/03 Hx Tablets 500mg 20tab 1 PO bid Michael J. /2006 Salvador Giordano M.D. 12/06 Omeprazole 05/20 Hx Capsules 20mg 30cap 1 po qd Prabha /2006 tank Swan 11/03 M.D. Detrol LA 05/29 Hx Capsules 4mg 30cap 1 PO qd Prabha /2005 tank Swan 11/03 Greta /2006 Omeprazole Hx Capsules 20mg 1 by mouth Unknown /0000 DR every day - 01/31 Immunizations CPT Code Status Date Vaccine Lot # [id number] Given 09/06/2018 High-Dose, Influenza Virus Vacccine-fluzone 65 and [id number] older 93436 Given 08/07/2008 DO Not Use Split Influenza Virus Vaccine [id number] Vital Signs Date Vital Result Comment 12/13/2018 2:29pm BP Systolic 130 mmHg BP Diastolic 82 mmHg Heart Rate 78 /min Body Temperature 98.8 F Respiratory Rate 18 /min Height 62 inches 5'2" Weight 168.00 lb BMI (Body Mass Index) 30.7 kg/m2 11/30/2018 2:07pm BP Systolic 132 mmHg BP [...] H/L Range Note CBC Electronic a 01/18/2018 Louis Gaby ([facility]) WBC 5.9 x10^3/UL 4.0- 10.0 RBC 4.30 x10^6/UL 3.93-6.00 HGB 13.1 g/dL 12.0-17.0 HCT 38 % 35-50 MCV 89.1 fL 80.0-95.0 MCH 30.5 pg 25.6-32.2 MCHC 34.2 g/dL 32.2-36.0 RDW-CV 12.1 % 11.6-14.4 PLT 203 x10^3/UL 163-400 MPV 9.2 fL Low 9.4-12.4 Prema# 2.73 x10^3/UL 1.56-6.13 Lymph# 2.32 x10^3/UL 1.18-3.74 [place]# 0.68 x10^3/UL 0.24-0.82 Eos # 0.2 x10^3/UL 0.0-0.5 Baso # 0.03 x10^3/UL 0.01-0.08 Prema% 45.9 % 34.0-70.0 Lymph % 39.1 % 20.0-52.0 [place]% 11.4 % 5.0-12.0 Eos% 2.9 % 0.7-7.0 Baso% 0.5 % 0.1-1.2 Lipid Profile 01/18/2018 Louis Gaby ([facility]) Cholesterol 214 mg/dL High 120-200 Triglycerides 76 mg/dL 30-200 HDL Cholesterol 52 mg/dL 30-85 LDL (Calculated) 147 CALC High 0-129 VLDL Cholesterol 15 mg/dL 0-50 HDL Risk Factor 4.1 CALC 0.0-4.4 Ua - Micro (a) 01/18/2018 [facility] WBC (Fma,[facility]) 5-10 # (607)- - RBC 2-3 # Mucus - /Lpf Epith occ /Lpf # Bacteria trace /Hpf # Z#Comments chromogenic int. # Comprehensive Metabolic 01/18/2018 Louis Gaby (a) Sodium 143 mEq/L 134-149 Prof Potassium 3.8 [...] GFR >60 ml/min/1.73m^ >=60 Laboratory test 01/18/2018 [facility] Urine Culture And SEE RESULT 1 finding Sensitivities BELOW Laboratory test 04/19/2012 [facility] Surgical Pathology 2 finding ---- <SEE NOTE> CBC Electronic 05/21/2011 [facility] WBC 4.9 3.6-9. (a) (607)- - 6 RBC 4.51 3.90-5.70 Hemoglobin (a/CMC/CTX) 13.7 g/dL 12.1 - 17.2 Hematocrit (a/CMC/CTX) 40.3 % 36.1 - 50.3 Platelets 359 10^3/ul 150-400 Lymph% 34.8 20.5-51.1 Mixed% 6.7 Neutrophils % 58.5 Mean Corpuscular Vol 89 82.2-97.4 Mean Corpuscular Hemoglobin 30.5 27.6-33.3 Mean Corpuscular Hemo Concen 34.1 32.0-36.0 RDW 12.2 11.6-13.7 Mean Platelet Volume 7.9 6.5-11.0 Ua - Micro (Fma) 05/21/2011 [facility] Appearance CLEAR (607)- - Color YELLOW Glucose, [...] (Fma/CMC/CTX) - Z#Comments - Comprehensive Metabolic 05/21/2011 Louis Gaby ([facility]) Albumin 4.5 g/dL 3.8-5.5 Prof Alk. Phos. [...] Ratio 24.8 Calc 8.0-36.0 Laboratory test 05/21/2011 Louis Gaby ([facility]) TSH 1.46 mIU/L 0.50- 6.00 finding Lipid Profile 05/21/2011 Louis Gaby ([facility]) Cholesterol 215 mg/dL High 120-200 HDL 52 mg/dL 30-85 Triglycerides 99 mg/dL 30-200 HDL Risk Factor 4.2 CALC High 0.0-4.0 LDL (Calculated) 144 CALC High 0-129 VLDL (Calculated) 20 mg/dL 0-50 CBC With Electronic Diff 08/08/2010 [facility] White Blood Count 4.1 CUMM Low 4.8-10.8 [...] Basophils 0 0-0.2 Type And Screen 08/08/2010 [facility] Patient Blood Type A POSITIVE Antibody Screen NEGATIVE Specimen Discard Date 08/22/10 4 Type And Screen 05/29/2010 [facility] Patient Blood Type A POSITIVE 5 Antibody Screen NEGATIVE Specimen Discard Date 06/13/10 6 Laboratory test finding 05/29/2010 [facility] CA 125 (Ovarian Cancer 11.0 U/ML 2.0-35.0 7 Ag) CBC With Electronic Diff 05/29/2010 [facility] White Blood Count 5.4 CUMM 4.8- 10.8 [...] 0 0-0.2 Ua - Micro (Fma) 03/07/2010 [facility] Appearance CLEAR (607)- - Color YELLOW Glucose NEG Bilirubin NEG Ketones NEG SP Grav <=1.005 Blood MODERATE # PH 6.0 Protein NEG Urobil 0.2 E.U./dL Nitrite NEG Leukocytes (Fma/CMC/[facility]) NEG Hyaline - /Lpf Granular - /Lpf WBC (a,[facility]) 3-5 # RBC 1-3 # Mucus - /Lpf Epith MODERATE /Lpf # Bacteria 1+ /Hpf # Amorphous - /Lpf Crystals, Fluid (Fma/CMC/CTX) - Z#Comments - Laboratory test 08/13/2009 [facility] Thin Prep SEE NOTE 8 finding 28 [facility] W/HPV(Lsil/ROSENDO/Asc) [place] [id number] [phone] Ua - Micro 08/13/2009 [facility] Appearance clear (a) (607)- - Color yellow [...] - Z#Comments - Complete Blood Count 01/28/2009 Myers Gaby ([facility]) WBC 5.9 x10^3/uL 3.6-9.6 Gran# 3.0 x10^3/uL [...] Rheumatoid SEE BELOW 9, 10 finding 28 [employer] Factor (RF) [place] [address] [phone] Laboratory test 01/28/2009 [facility] Sed Rate [...] Thin Prep SEE NOTE [address] W/HPV(Lsil/ROSENDO/Asc) [place] [address] [phone] Laboratory test 09/20/2007 [facility] Medicine Throat - Beta Strep Fma NEGATIVE finding (607)- - Quickstrep NEGATIVE Negative Laboratory test 06/03/2007 [facility] Thin Prep SEE NOTE [address] W/HPV(Lsil/ROSENDO/Asc) [place] [address] [phone] Lipid Profile 06/03/2007 Myers Gaby ([facility]) Cholesterol 194 120- 13 mg/dL 200 HDL 32 mg/dL 30-85 Triglycerides 77 mg/dL 30-200 HDL Risk Factor 6.1 CALC 4.2-7.0 LDL (Calculated) 147 CALC High 0-129 VLDL (Calculated) 15 mg/dL 0-50 Comprehensive Metabolic 06/03/2007 Myers Gaby ([facility]) Albumin 4.1 g/dL 3.8-5.5 Prof Alk. Phos. [...] 16.3 Calc 8.0-36.0 Laboratory test 06/03/2007 Myers Gaby ([facility]) TSH 2.49 mIU/L 0.50- 6.00 finding Complete Blood Count 06/03/2007 Myers Gaby ([facility]) WBC 4.8 x10\\S\\3/uL 3.6-9.6 Gran# 2.7 x10\\S\\3/uL [...] 12.5 % 11.6-13.7 Ua - Non Micro ([facility]) 06/03/2007 [facility] Appearance CLEAR (607)- - Color LT YELLOW Glucose NEG Bilirubin NEG Ketones NEG SP Grav <=1.005 Blood NEG LMP 05/27/07 PH 7.5 Protein NEG Urobil 0.2 Nitrite NEG Leukocytes ([facility]) NEG Laboratory test 05/20/2006 [facility] B12 ([facility]) 584 pg/mL 230-1050 finding (607)- - Folic Acid ([facility]) 12.08 NG/ML 3.00-16.00 TSH ([facility]) 2.17 uIU/ml 0.5-6.0 Ua - Micro ([facility]) 05/29/2005 [facility] Appearance CLOUDY (607)- - Color LT YELLOW [...] 05/29/2005 [facility] Pap,TP W/HPV SEE IMAGE finding [address] [place] [address] [phone] 1 SEE RESULT BELOW Name: JONNA CHAPIN I : [address]: Radha Rodriguez NP Acct: [id number] Unit: [id number] AGE: 67 Location: [facility] Re01/18/18 SEX: F Status: REG REF SPEC: [id number] ANTONI: 01/18/[address] [facility] [address]: Radha Rodriguez NP REQ: [id number] RECD: 01/18/18 STATUS: COMP _ SOURCE: URINE SPDESC: ORDERED: Urine Culture COMMENTS: [id number] salgado urine top Urine Source: Random Procedure Result Reported Site Urine Culture Final 01/20/18- 0953 ML No growth of clinically significant organisms * - [facility] Zhao . END OF REPORT DEPARTMENT OF PATHOLOGY, [address] [place] [address] Blayne Pittman M.D. Director [facility] # [id number] 2 --- RUN DATE: 04/20/12 [facility] NMI LIVE PAGE 1 RUN TIME: 1331 Specimen Inquiry RUN USER: INTERFACE -- Name: CHAPINJONNA I Status: REG REF Re04/19/12 Age/Sex: 61/F Unit#: [id number] Location: STEVEN Dhillon. : 52 -- Specimen: [id number] Spec Date:04/19/12 Dr: Logan pappas MD Spec Type: SURGICAL P Received:04/19/12-1431 Copies to: Mireya florez MD SPECIMEN RANDOM COLON BIOPSIES HISTORY POST-OP DIAGNOSIS: To cecum - random biopsy to rule out microscopic CLINICAL INFORMATION: Family history of colon cancer; diarrhea GROSS DESCRIPTION The specimen is received in formalin labelled Jonna Chapin, Random Colon Biopsies, and consists of three fragments of brown tissue each measuring 0.5 x 0.2 x 0.2 cm. Submitted entirely, one cassette. DIAGNOSIS Random colon, biopsy: Fragments of large bowel mucosa with evidence of lymphocytic colitis. Signed Electronically by: MAICO POE 04/20/12 1331 -- -- DEPARTMENT OF PATHOLOGY, [address] [place] [address] [facility] Permit #[id number] Blayne Pittman M.D. Director Maico Poe M.D. Swing Type Lathe Operator Dir crow -- 3 OR DATE 08/15 [...] used for screening ovarian cancer. . [address] [facility]. DEPARTMENT OF PATHOLOGY or Extension 0023 ELECTROMECHANICAL ENGINEER CYTOLOGY REPORT PATIENT: JONNA CHAPIN I : 1950 AGE: 58 Y SEX: F ACCT: [id number] PROCEDURE DATE: 08/13/2009 DATE RECEIVED: 08/14/2009 REQUESTING PHYSICIAN: PRABHA HILL MD LOCATION: [facility] Case No. [id number] PATIENT DATA: [id number] SPECIMEN SUBMITTED: * * (HPVII) THIN PREP [...] are examined with an FDA-approved location-guidance system (33467). Performed @ [facility] [address] [place] [address] "" 9 1SST 10 RA Latex Turbid. 5.4 IU/mL 0.0-13.9 RN RN-[facility] [address] [phone] [address] [facility] DEPARTMENT OF PATHOLOGY or Extension 3091 ELECTROMECHANICAL ENGINEER CYTOLOGY REPORT PATIENT: JONNA CHAPIN I : 1950 AGE: 57 Y SEX: F ACCT: [id number] PROCEDURE DATE: 08/07/2008 DATE RECEIVED: 08/08/2008 REQUESTING PHYSICIAN: PRABHA HILL MD LOCATION: [facility] Case No. [id number] PATIENT DATA: [id number] PREVIOUS PAP: 06/03/07 ENDOMETRIAL CELLS SPECIMEN SUBMITTED: [...] are examined with an FDA-approved location-guidance system (48464). Performed @ [facility] [address] [place] [address] [address] [facility] DEPARTMENT OF PATHOLOGY or Extension 6881 ELECTROMECHANICAL ENGINEER CYTOLOGY REPORT PATIENT: JONNA CHAPIN I : 1950 AGE: 56 Y SEX: F ACCT: [id number] PROCEDURE DATE: 06/03/2007 DATE RECEIVED: 06/06/2007 REQUESTING PHYSICIAN: PRABHA HILL MD LOCATION: [facility] Case No. [id number] PATIENT DATA: [id number] SPECIMEN SUBMITTED: * * (HPVII) THIN PREP [...] are examined with an FDA-approved location-guidance system (12220). Performed @ [facility] [address] [place] [id number] [facility]STING Procedures Date Code Description Status 01/18/2018 78974 Electrocardiogram Complete Completed 10/11/2017 04885152 Mammogram Completed 10/11/2014 338875076 Bone Mineral Density Test Completed 04/19/2012 58873301 Colonoscopy Completed 08/17/2011 37314886 Mammogram Completed 05/21/2011 77471 Electrocardiogram Complete Completed 03/19/2011 21681 Pulse Oximetry Completed 08/05/2010 82259803 Mammogram Completed 06/26/2009 53047317 Mammogram Completed 06/19/2008 99698788 Mammogram Completed 06/17/2007 69654055 Mammogram Completed 02/02/2007 57528863 Colonoscopy Completed 05/25/2006 66583881 Mammogram Completed Encounters Type Date Location Provider Dx Diagnosis Office Visit 11/30/2018 [facility] Office Naty Loomis J01.90 Acute sinusitis, 2:15p ALISE Velasquez unspecified Office Visit 10/28/2018 [facility] Office Naty Loomis K21.9 Gastro-esophageal 9:00a ALISE Velasquez reflux disease without esophagitis Z12.11 Encounter for screening for malignant neoplasm of colon Office Visit 01/18/2018 2:15p [facility] Office Radha N39.0 Urinary tract [place], Afnp-C infection, site not specified R07.9 Chest pain, unspecified Z82.49 Family hx of ischem heart dis and oth dis of the circ sys Z85.038 Personal history of malignant neoplasm of large intestine Office Visit 05/21/2011 10:20a [facility] Prabha cedeno V70.0 Examination Greta Redman General Medical Routine AT Health Care Facility V72.31 Routine Welding Machine Setter Examination 272.4 Hyperlipidemia Other Unspec 135 Sarcoidosis 599.72 Microscopic Hematuria Office Visit 03/19/2011 2:15p Main Office Madeleine Benitez, 493.00 Asthma Extrinsic Afnp-C Unspecified Office Visit 02/19/2011 11:20a [facility] Prabha cedeno 300.09 Anxiety States Greta Redman Other Office Visit 03/07/2010 1:45p Main Office Adeola Allenrer, 599.0 UTI Urinary Tract DIGITAL MEDIA MANAGER Infection Site Not Spec 626.4 Irregular Menstrual Cycle Office Visit 08/13/2009 10:00a [facility] Prabha cedeno V70.0 Examination Greta Redman General Medical Routine AT Health Care Facility 729.5 Pain In Limb 719.47 Pain Joint Ankle & Foot V72.31 Routine Welding Machine Setter Examination 791.7 Cells & Casts In Urine Other Office Visit 01/28/2009 3:20p Main Office Prabha cedeno 719.46 Pain Joint Greta Redman Lower Leg 719.45 Pain Joint Pelvic Region & Thigh Office 08/07/2008 [facility] Prabha cedeno v04.81 Need For Prophylactic Visit 2:10p Office Greta Redman Vaccination & Inoculation/Influenza 791.7 Cells & Casts In Urine Other V04.81 Need For Prophylactic Vaccination & Inoculation/Influenza V70.0 Examination General Medical Routine AT Health Care Facility V72.31 Routine Welding Machine Setter Examination 719.47 Pain Joint Ankle & Foot Office Visit 01/21/2008 9:00a Main Office Prabha cedeno 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 General Medical Routine AT Health Care Facility V72.31 Routine Welding Machine Setter Examination V17.3 History Family Ischemic Heart Disease V18.0 History Family Diabetes Mellitus Office Visit 03/15/2007 1:15p [facility] Radha 465.9 URI Upper [place], Afnp-C [...] Disturbance 787.1 Heartburn Office Visit 05/29/2005 2:20p [facility] Office Prabha Hill, 599.7 Hematuria M.D. V72.31 Routine Welding Machine Setter Examination 787.91 Diarrhea Office Visit 05/08/2005 2:20p [facility] Office Prabha [place], 135 Sarcoidosis M.D. 786.2 Cough 733.20 Cyst Bone Localized Unspec Plan of Treatment Future Appointment(s):02/01/2019 1:00 pm - Shivani Orlando M.D. at [facility] Itvhlg2312/13/2018 - Hood Brito-CJ20.9 Acute bronchitis, vqbxpkrrxqwH86.72 Enterocolitis due to Clostridium difficile, not specified as recurrentAllComments:~B_~U_Medication Management~b_~u_ Patient Understands medications she's taking? Yes No Are there Barriers to Adherence? Yes No Has the patient been asked about herbal supplements and therapies, and OTC meds? Yes No ~B_~U_Care Plan~b_~u_1. Patient has been queried about patient's goals/preferences and functional/lifestyle goals at relevant visits. If relevant, describe: na2. Treatment goals as explained to the patient: aboveresolution of sx 3. Are there barriers to meeting treatment goals? Yes No If Yes, please describe:4. Self-Management goals as describedto the patient: Yes No continue prn proair , expect decreased need over next 1-2 weeks discusseddiet-- pre and probiotics , good nutrition during rx has upcomong colonoscopy sceduled, plans to call and reschedule until sx resolved
[2018-12-17 09:21] LABS: C Reactive Protein 44.67 mg/L (<8.01); Uric Acid 5.8 mg/dL (2.3-6.6)
[2018-12-17 11:03] LABS: Urine Appearance Clear; Urine Bacteria 1+ (Absent); Urine Bilirubin Negative (Negative); Urine Blood 1+ (Negative); Urine Color Yellow; Urine Glucose Negative (Negative); Urine Ketones Negative (Negative); Urine Nitrite Negative (Negative); Urine Protein Negative (Negative); Urine Red Blood Cell 1+(3-5/hpf) (Absent); Urine Specific Gravity 1.005 (1.010-1.030); Urine Squamous Epithelial Cell Present (Absent); Urine Urobilinogen Negative (Negative); Urine White Blood Cell Trace(0-5/hpf) (Absent)
[2018-12-17 11:29] LABS: Albumin 3.9 g/dL (3.2-5.2); Calcium 8.8 mg/dL (8.6-10.3); Potassium 3.9 mmol/L (3.5-5.0); Total Bilirubin 0.4 mg/dL (0.2-1.0)
[2018-12-17] MEDS ORDERED: Apixaban* 5 MG TAB PO ONE (11:33)
[2018-12-17 11:35] LABS: Albumin/Globulin Ratio 1.4 (1-3); BUN/Creatinine Ratio 15.4 (8-20); EGFR African American 89.1 (>60); EGFR Non-African American 73.7 (>60); Globulin 2.8 g/dL (2-4); Total Protein 6.7 g/dL (6.4-8.9)
[2018-12-17 11:44] VITALS: BP 128/85
== END 2018-12-17 12:02 | disposition home or self-care (01) ==
LOC: ED 08:37
DX: I82.4Z2 Acute embolism and thrombosis of unspecified deep veins of left distal lower extremity (principal)
CPT/HCPCS: 36415; 80053; 81003; 81015; 84550; 85025; 85610; 86140; 87086; 99283